=== PATIENT | female | born 1960 | race Asian ===

== ENCOUNTER → 2018-03-20 08:36 | Outpatient (CLI) | payer OTHER, SELFPAY ==
[2018-03-20 09:30] LABS: Hemoglobin A1C% w Est Avg Glu 6.2 % (4.0-6.0)
[2018-03-20 09:56] LABS: Alanine Aminotransferase 45 IU/L (9-52); Albumin 4.3 g/dL (3.5-5.0); Albumin Globulin Ratio 1.3 (1.0-2.8); Alkaline Phosphatase 84 U/L (38-126); Aspartate Aminotransferase 29 IU/L (14-36); BUN Creatinine Ratio 21.7 (6-22); Bilirubin Total 1.1 mg/dL (0.2-1.3); Blood Urea Nitrogen 13 mg/dL (7-17); Calcium 10.2 mg/dL (8.4-10.2); Carbon Dioxide 30 mmol/L (22-32); Chloride 99 mmol/L (98-107); Cholesterol 158 mg/dL (140-199); Estimated Glomerular Filt Rate > 60.0 mL/min (>60); Globulin 3.3 g/dL (1.7-4.1); Glucose 108 mg/dL (70-100); HDL Cholesterol 40 mg/dL (40-60); HEMOLYSIS < 15 (0-50); LDL Cholesterol Calculated 72 mg/dL (<100); Potassium 3.4 mmol/L (3.4-5.1); Sodium 142 mmol/L (137-145); Total Protein 7.6 g/dL (6.3-8.2); Triglycerides 232 mg/dL (35-150)
== END ==
PROVIDERS: PCP Internal Medicine; Visit Provider Internal Medicine
DX: E11.9 Type 2 diabetes mellitus without complications (principal); E78.00 Pure hypercholesterolemia, unspecified
CPT/HCPCS: 36415; 80053; 80061; 83036

== ENCOUNTER → 2019-07-15 10:53 | Outpatient (CLI) | payer OTHER, SELFPAY ==
--- NOTE | 2019-07-15 | DI.MG.S_ITS ---
BILATERAL DIGITAL SCREENING MAMMOGRAM 3D/2D WITH CAD: 07/15/2019 CLINICAL: Routine screening. Comparison is made to exams dated: 08/02/2017 mammogram, 08/01/2016 mammogram, 01/08/2015 mammogram, and 10/24/2013 mammogram - [facility]. The tissue of both breasts is heterogeneously dense. This may lower the sensitivity of mammography. Current study was also evaluated with a Computer Aided Detection (CAD) system. There is a biopsy clip in the right breast. No significant masses, calcifications, or other findings are seen in either breast. There has been no significant interval change. IMPRESSION: NEGATIVE There is no mammographic evidence of malignancy. A 1 year screening mammogram is recommended. This exam was interpreted at Station ID: [id number]. NOTE: For mammograms, a report in lay terms will be sent to the patient. Approximately 15% of breast malignancies will not be visualized mammographically. In the management of a palpable breast mass, a negative mammogram must not discourage biopsy of a clinically suspicious lesion. Electronically Signed By: Jaspreet argueta/binh:07/15/2019 16:25:31 letter sent: Normal Exam ACR BI-RADS Category 1: Negative 3341F
== END ==
PROVIDERS: Family Provider Internal Medicine; PCP Internal Medicine; Visit Provider Internal Medicine
DX: Z12.31 Encounter for screening mammogram for malignant neoplasm of breast (principal)
CPT/HCPCS: 77063; 77067

== ENCOUNTER → 2020-04-28 11:52 | Outpatient (CLI) | payer OTHER, SELFPAY ==
--- NOTE | 2020-04-28 11:55 | DI.RAD.S_ITS ---
PROCEDURE: XR KNEE LT 1TO2V INDICATIONS: LEFT KNEE PAIN TECHNIQUE: To views of the knee were acquired. COMPARISON: [facility], , KNEE 1-2 VIEWS RIGHT, 03/05/2014, 10:36. FINDINGS: Bones: No fractures or dislocations. No suspicious bony lesions. Severe degenerative arthritis involving the medial compartment and patellofemoral compartment with bulky osteophytes and joint space loss. Soft tissues: Minimal joint effusion. No suspicious soft tissue calcifications. IMPRESSION: Severe degenerative arthritis of the left knee. No evidence acute bony abnormality of the left knee. If clinical suspicion and/or symptoms persist, further assessment with repeat plain films, or advanced imaging (e.g., CT, MRI, or bone scan) may be helpful for further assessment. Dictated by: Jeb Williamson M.D. on 04/28/2020 at 12:44 Approved by: Jeb Williamson M.D. on 04/28/2020 at 12:45
--- NOTE | 2020-04-28 11:55 | DI.RAD.S_ITS ---
PROCEDURE: XR HIP W PEL IF DONE LT 2V INDICATIONS: LEFT HIP PAIN TECHNIQUE: AP pelvis with lateral view(s) of the left hip(s). COMPARISON: None. FINDINGS: Bones: No fractures or dislocations. Pelvic ring appears intact. No suspicious bony lesions. Mild to moderate degenerative arthritis of the left hip. Soft tissues: The visualized bowel gas pattern is normal. No suspicious soft tissue calcifications. IMPRESSION: [id number]-[id number] degenerative arthritis of the left hip. No evidence acute bony abnormality of the pelvis and left hip. If clinical suspicion and/or symptoms persist, further assessment with repeat plain films, or advanced imaging (e.g., CT, MRI, or bone scan) may be helpful for further assessment. Dictated by: Jeb Williamson M.D. on 04/28/2020 at 12:41 Approved by: Jeb Williamson M.D. on 04/28/2020 at 12:42
== END ==
PROVIDERS: Family Provider Internal Medicine; PCP Internal Medicine; Referring Provider Internal Medicine; Visit Provider Internal Medicine
DX: M25.552 Pain in left hip (principal); M16.12 Unilateral primary osteoarthritis, left hip; M25.562 Pain in left knee; M17.12 Unilateral primary osteoarthritis, left knee
CPT/HCPCS: 73502; 73560

== ENCOUNTER 2020-06-11 09:27 | Emergency (ER) | payer OTHER, SELFPAY ==
[2020-06-11 09:37] VITALS: BP 133/84; PULSE 81; RESP 16; TEMP 36.5; O2SAT 99; BMI 26.9
--- NOTE | 2020-06-11 09:48 | ED_ITS ---
HPI - Extremity Injury (Upper) General Chief Complaint: Extremity Problem,Nontraumatic Stated Complaint: injury to right arm Time Seen by Provider: 06/11/20 09:48 History of Present Illness HPI narrative: 60-year-old woman working at [employer] with no other specific medical issues was pulling boxes felt acute pain in her right forearm and then was unable to use her right arm due to severe pain. She presents to the emergency room for further evaluation. Related Data Previous Rx's Medication Instructions Recorded oxycodone-acetaminophen 1 tab PO Q6H PRN #14 tab 06/11/20 Allergies Allergy/AdvReac Type Severity Reaction Status Date / Time Aspirin Allergy Unknown ITCHY, Uncoded 01/23/18 12:00 REDNESS Review of Systems Review of Systems Narrative: Pertinent positive and negative findings as per HPI Remainder of review of systems is otherwise unremarkable for Constitutional: Fevers, chills, weakness ENT: No sore throat, neck pain, ear pain CV: Chest pain, palpitations, dyspnea on exertion Respiratory: Cough, wheeze, dyspnea GI: Nausea, vomiting, diarrhea, change in bowel habits, black or bloody stools : Dysuria, hematuria, flank pain MS: Muscle weakness, numbness, joint swelling or warmth Patient History Surgical History H/O: hysterectomy (Acute) History of knee replacement (Acute) Social History Smoking Status: Never smoker Exam Narrative Exam Narrative: General: Alert appropriate in no acute distress Respiratory: Able to speak in full sentences, no obvious respiratory distress Skin: No obvious rashes, warm and dry Neurologic: Grossly intact no obvious asymmetries or abnormalities Psych, appropriate insight and affect, cooperative Right arm is examined: She has significant tenderness and muscle spasm on the dorsal aspect of the right forearm. Tenderness in the distal portion and what seems to be spasm portion of the muscle body in the forearm. Pain is radiating up into her shoulder. She has full range of motion in her fingers. Tenderness with extension but not as much with flexion. With passive range of motion at the elbow and the shoulder she has no tenderness. There is no tenderness with palpation of biceps or triceps muscles. There is no bruising or contusion or abrasion at this time. She is completely neurovascularly intact. Initial Vital Signs Initial Vital Signs: Vital Signs Temperature 97.7 F 06/11/20 09:37 Pulse Rate 81 06/11/20 09:37 Respiratory Rate 16 06/11/20 09:37 Blood Pressure 133/84 06/11/20 09:37 Pulse Oximetry 99 06/11/20 09:37 Course Orders Ordered: Discontinued Medications Acetaminophen (Tylenol) 325 mg PO NOW ONE Stop: 06/11/20 10:29 Ibuprofen (Advil) 400 mg PO NOW ONE Stop: 06/11/20 10:29 Vital Signs Vital signs: Vital Signs - 8 hr 06/11/20 09:37 Temperature 97.7 F Pulse Rate 81 Respiratory Rate 16 Blood Pressure 133/84 Pulse Oximetry 99 [facility] - Extremity Injury (Upper) Medical Records Attestation: I reviewed the patient's medical records. [facility] Narrative Medical decision making narrative: Presumed spontaneous rupture of forearm extensor tendon given history and exam today. Home splint and pain control is provided. She is referred to orthopedics for definitive care. L and I forms are completed she will be able to do only light duty with no use of her right arm until further evaluated and cleared by orthopedics. Discharge Plan Departure Patient Disposition: Home Clinical Impression: Spontaneous rupture of flexor tendon of forearm Qualifiers: Laterality: right Qualified Code(s): M66.331 - Spontaneous rupture of flexor tendons, right forearm Instructions: DI for Arm Pain Activity Restrictions/Additional Instructions: Thank you for coming in today. I am concerned that you have ruptured 1 of the tendons in your forearm and that is what is causing the severe pain. Keeping the forearm as immobilized as possible will help with pain control. Using ice will be helpful. Using 400 mg of ibuprofen (2 [id number] pills) and 1 Tylenol every 6 hours can be very helpful in controlling pain. For severe pain using 400 mg of ibuprofen and 1 Percocet can be helpful. Percocet is a narcotic and will cause constipation. Please enjoy lots of the plums from your [place] to prevent constipation. You will need to follow-up with Dr. Zenia Huffman for definitive diagnosis and care. Prescriptions: New oxycodone-acetaminophen 5-325 mg tablet 1 tab PO Q6H PRN (Reason: pain) Qty: 14 RF: 0 Referrals: Zenia Huffman MD [Physician] - Bette Tomas MD [Primary Care Provider] -
[2020-06-11] MEDS: ACETAMINOPHEN 325 MG TABLET PO (10:35)
[2020-06-11] MEDS: IBUPROFEN 400 MG TABLET PO (10:36)
[2020-06-11 10:37] VITALS: PULSE 81; O2SAT 97
[2020-06-11 10:38] VITALS: BP 139/90; PULSE 81; RESP 16; O2SAT 98
== END 2020-06-11 11:04 | disposition home or self-care (01) ==
PROVIDERS: Emergency Provider Emergency Medicine; Family Provider Internal Medicine; PCP Internal Medicine
DX: M66.33 Spontaneous rupture of flexor tendons, forearm (principal); X58.XXXA Exposure to other specified factors, initial encounter; Y99.0 Civilian activity done for income or pay
CPT/HCPCS: 99282; 99283

== ENCOUNTER → 2020-07-16 16:21 | Outpatient (CLI) | payer OTHER, SELFPAY ==
--- NOTE | 2020-07-16 16:27 | DI.MG.S_ITS ---
BILATERAL DIGITAL SCREENING MAMMOGRAM 3D/2D WITH CAD: 07/16/2020 CLINICAL: Routine screening. Comparison is made to exams dated: 07/15/2019 mammogram, 08/02/2017 mammogram, and 08/01/2016 mammogram - [facility]. The tissue of both breasts is heterogeneously dense. This may lower the sensitivity of mammography. Current study was also evaluated with a Computer Aided Detection (CAD) system. There is a biopsy clip in the right breast. No significant masses, calcifications, or other findings are seen in either breast. There has been no significant interval change. IMPRESSION: NEGATIVE There is no mammographic evidence of malignancy. A 1 year screening mammogram is recommended. This exam was interpreted at Station ID: [id number]. NOTE: For mammograms, a report in lay terms will be sent to the patient. Approximately 15% of breast malignancies will not be visualized mammographically. In the management of a palpable breast mass, a negative mammogram must not discourage biopsy of a clinically suspicious lesion. Electronically Signed By: Priti ross/binh:07/16/2020 16:59:32 letter sent: Normal Exam ACR BI-RADS Category 1: Negative 3341F
== END ==
PROVIDERS: Family Provider Internal Medicine; PCP Internal Medicine; Referring Provider Internal Medicine; Visit Provider Internal Medicine
DX: Z12.31 Encounter for screening mammogram for malignant neoplasm of breast (principal)
CPT/HCPCS: 77063; 77067

== ENCOUNTER → 2020-08-27 10:21 | Outpatient (CLI) | payer OTHER, SELFPAY ==
[2020-08-27 11:44] LABS: Erythrocyte Sedimentation Rate 10 MM/HR (0-20)
[2020-08-27 11:53] LABS: Uric Acid 7.8 mg/dL (2.5-6.2)
[2020-08-27 11:57] LABS: Rheumatoid Factor < 8.6 IU/mL (<12.0)
[2020-08-29 14:26] LABS: ANA Screen, IFA Negative (.)
== END ==
PROVIDERS: Family Provider Internal Medicine; PCP Internal Medicine; Referring Provider Orthopaedic Surgery; Visit Provider Orthopaedic Surgery
DX: M19.90 Unspecified osteoarthritis, unspecified site (principal)
CPT/HCPCS: 36415; 84550; 85651; 86038; 86430

== ENCOUNTER → 2021-01-14 18:32 | Outpatient (ROUT) | payer OTHER, SELFPAY ==
[2021-01-14 19:00] LABS: Appearance Urine UA CLOUDY; Bilirubin Urine UA NEGATIVE (NEGATIVE); Color Urine UA YELLOW; Glucose Urine UA TRACE g/dL (Negative); Ketones Urine UA NEGATIVE (NEGATIVE); Leukocyte Esterase Urine UA TRACE (NEGATIVE); Nitrite Urine UA NEGATIVE (Negative); Occult Blood Urine UA 3+ (Negative); Protein Urine UA NEGATIVE (Negative); Specific Gravity Urine UA 1.015 (1.000-1.035); Urobilinogen Urine UA 0.2 E.U./dL (0.2)
[2021-01-14 19:08] LABS: Amorphous Sediment Urine 1+; Bacteria Urine Occasional (0-1); Culture Indicated Urine Specimen Cultured; RBC Urine >100/HPF (0-5/HPF); Squamous Epithelial Cell Urine 0-1 /HPF (0-5/HPF); WBC Urine 1-5/HPF (0-5/HPF)
== END ==
PROVIDERS: Family Provider Internal Medicine; PCP Internal Medicine; Visit Provider Physician Assistant
DX: R31.9 Hematuria, unspecified (principal)
CPT/HCPCS: 81001; 87086

== ENCOUNTER 2021-01-15 02:24 | Emergency (ER) | payer OTHER, SELFPAY ==
[2021-01-15 02:40] VITALS: BP 179/83; PULSE 92; RESP 22; TEMP 36.3; O2SAT 99; BMI 26.2
--- NOTE | 2021-01-15 02:41 | DI.CT.S_ITS ---
PROCEDURE: CT KIDNEY URETER BLADDER (KUB) INDICATIONS: flank pain TECHNIQUE: Noncontrast 5 mm thick sections acquired from the diaphragms to the symphysis. 5 mm thick coronal and sagittal reformats were then performed. For radiation dose reduction, the following was used: automated exposure control, adjustment of mA and/or kV according to patient size. COMPARISON: None. FINDINGS: Image quality: Excellent. Lung bases: Lung bases are clear. Heart size is normal. Urinary system: Both kidneys are normal in size. Punctate nonobstructing right kidney stones. There is a 3 millimeter stone in the distal left ureter with associated mild left hydronephrosis and perinephric stranding there also appears to be a 2 millimeter stone at the left ureterovesicular junction. Bladder wall thickness is normal; no calcified bladder stones. Other solid organs: Liver is normal in size. Gallbladder is partially stat. Pancreas is normal in contours. Spleen is normal in size. No adrenal nodules. Peritoneum and bowel: Unenhanced bowel loops demonstrate normal wall thickness and caliber. No free fluid or air. Nodes and vessels: No retroperitoneal or mesenteric adenopathy by size criteria. Aorta and inferior vena cava are normal in caliber. Vascular calcification of the abdominal aorta and its branches. Abdominal wall: No ventral hernias. Pelvis: No free pelvic fluid. Uterus surgically absent. No inguinal hernias or adenopathy. Bones: No suspicious bony lesions. No vertebral body compression fractures. Multilevel spondylosis most apparent at the L2-3 level where there is trace retrolisthesis. IMPRESSION: There is a 3 millimeter stone in the distal left ureter with associated mild left hydronephrosis and perinephric stranding there also appears to be a 2 millimeter stone at the left ureterovesicular junction. No significant discrepancy the preliminary report. Dictated by: Jason Molina M.D. on 01/15/2021 at 8:24 Approved by: Jason Molina M.D. on 01/15/2021 at 8:30
--- NOTE | 2021-01-15 02:43 | ED_ITS ---
HPI - Back Pain/Injury General Chief Complaint: Back Pain/Injury Stated Complaint: Back pain vomiting Time Seen by Provider: 01/15/21 02:41 Source: patient and family (Son) Mode of arrival: Ambulatory Limitations: no limitations History of Present Illness HPI Narrative: This is a 60-year-old female comes in with complaint of hematuria yesterday. Patient states she had a sudden onset of left-sided flank pain radia ting to her left to her abdomen this evening. Patient has had nausea and vomiting. She felt chilled earlier this evening. She denies any diaphoresis. She has not any issues with bowel movements. She has not had any frequency, dysuria sense of urgency. She states she is on metformin, lisinopril and vitamin-D. She has had a total abdominal hysterectomy. She does not know of any prior kidney stones but has similar pain once before many years ago on the right side. No tobacco, alcohol or illicit. She was accompanied here by her son today. Related Data Previous Rx's Medication Instructions Recorded oxycodone-acetaminophen 1 tab PO Q6H PRN #14 tab 06/11/20 oxycodone-acetaminophen [Percocet] 1 tab PO Q6H PRN #14 tab 01/15/21 tamsulosin [Flomax] 0.4 mg PO DAILY #7 cap 01/15/21 Allergies Allergy/AdvReac Type Severity Reaction Status Date / Time aspirin Allergy Unknown ITCHY, Verified 06/11/20 10:45 REDNESS Review of Systems Review of Systems ROS Unobtainable: All systems reviewed & are unremarkable except as noted in HPI and below Patient History Surgical History H/O: hysterectomy History of knee replacement Social History Smoking Status: Never smoker Smoking Status: Never smoker alcohol intake frequency: holidays/special occasions only Substance Use Type: does not use Exam Narrative Exam Narrative: GENERAL: Alert and oriented x three, well-nourished female in moderate distress. Patient is having quite a bit difficulty finding position of comfort. HEENT: Head normocephalic, atraumatic, EOMI, pupils reactive, face symmetric, moist mucous membranes NECK: Supple, full range of motion CARDIOVASCULAR: Regular rate and rhythm without murmurs, rubs or gallops. RESPIRATORY: Breath sounds equal bilaterally, no wheezes rales or rhonchi. ABDOMEN: Soft, nontender to palpation. Nondistended. Normoactive bowel sounds all 4 quadrants. No guarding or rebound, rigidity, no mass, no bruit or abdominal mass. : No CVA tenderness EXTREMITIES: Normal range of motion, no clubbing or edema. Neurovascularly intact NEUROLOGICAL: Cranial nerves II through XII grossly intact. Moving all ext remities SKIN: Warm, dry, no petechiae, no rashes or lesions. Initial Vital Signs Initial Vital Signs: Vital Signs Temperature 97.4 F L 01/15/21 02:40 Pulse Rate 92 H 01/15/21 02:40 Respiratory Rate 22 01/15/21 02:40 Blood Pressure 179/83 H 01/15/21 02:40 Pulse Oximetry 99 01/15/21 02:40 Course Orders Ordered: ED Orders 01/15/21 02:32 Urine Microscopic Stat 01/15/21 02:41 CT kidney ureter bladder (KUB) Stat 01/15/21 02:55 Complete Blood Count AUTO DIFF Stat Comprehensive Metabolic Panel Stat Lipase Stat Discontinued Medications Sodium Chloride (Normal Saline 0.9%) 1,000 mls @ 1,000 mls/hr IV BOLUS ONE Stop: 01/15/21 03:40 Last Infusion: 01/15/21 04:11 Dose: 0 mls/hr Documented by: Admin: 01/15/21 02:48 Dose: 1,000 mls/hr Documented by: VANESSA Lidocaine HCl 5 ml/ Sodium (Chloride) 55 mls @ 330 mls/hr IV NOW ONE Stop: 01/15/21 04:14 Last Infusion: 01/15/21 04:45 Dose: 0 mls/hr Documented by: Admin: 01/15/21 04:29 Dose: 330 mls/hr Documented by: VANESSA Ketorolac Tromethamine (Ketorolac 60 Mg/2 Ml Vial) 15 mg IV NOW ONE Stop: 01/15/21 02:43 Last Admin: 01/15/21 02:47 Dose: 15 mg Documented by: VANESSA Ondansetron HCl (Ondansetron 4 Mg/2 Ml Inj) 4 mg IV NOW ONE Stop: 01/15/21 02:43 Oxycodone/Acetaminophen (Oxycodone/Apap 5/325 Prepack) 1 bottle MISC SEEINSTR ONE Stop: 01/15/21 05:51 Tamsulosin HCl (Tamsulosin 0.4 Mg Capsule) 0.4 mg PO NOW ONE Stop: 01/15/21 04:18 Last Admin: 01/15/21 04:27 Dose: 0.4 mg Documented by: VANESSA Reevaluation(s) Reevaluation #1: Patient pain had improved with Toradol but then began to recur, it is not as intense and is intermittent in waves and has moved from left upper flank to lower left abdomen. Reviewed labs and imaging. Lidocaine IV given. Time: 04:13 Reevaluation #2: patient present but significantly better and patient would like to return home. Reviewed discharge plans, labs, imaging and return precautions. Patient has mobic 15mg at home and we can continue as prescribed w/ percocet for breakthrough pain. Time: 05:50 Vital Signs Vital signs: Vital Signs - 8 hr 01/15/21 02:40 Temperature 97.4 F L Pulse Rate 92 H Respiratory Rate 22 Blood Pressure 179/83 H Pulse Oximetry 99 MDM - Back Pain/Injury Lab Data Attestation: I reviewed the patient's lab results. Result diagrams: 01/15/21 02:55 01/15/21 02:55 Labs: Lab Results 01/15/21 01/15/21 01/15/21 Range/Units 02:32 02:55 02:55 WBC 7.4 (4.5-11.0) X10^3/uL RBC 4.77 (4.0-5.2) X10^6/uL Hgb 13.2 (12.0-16.0) g/dL Hct 40.4 (36-46) % MCV 84.6 (80-100) fL MCH 27.7 (26-34) PG MCHC 32.8 (30-36) % RDW 13.6 (11.6-14.8) % Plt Count 237 (150-400) X10^3/uL Neut % (Auto) 56.3 (50-75) % Lymph % (Auto) 37.2 (25-40) % [place] % (Auto) 5.0 (3-14) % Eos % (Auto) 0.8 L (2-4) % Baso % (Auto) 0.7 (0-2) % Neut # (Auto) 4200 (7975-4452) /uL Lymph # (Auto) 2800 (6928-7507) /uL [place] # (Auto) 400 (0-900) /uL Eos # (Auto) 100 (0-450) /uL Baso # (Auto) 100 (0-100) /uL Sodium 142 (137-145) mmol/L Potassium 3.9 (3.4-5.1) mmol/L Chloride 108 H (98-107) mmol/L Carbon Dioxide 27 (22-32) mmol/L BUN 21 H (7-17) mg/dL Creatinine 0.91 (0.52-1.04) mg/dL Estimated GFR > 60.0 (>60) mL/min BUN/Creatinine Ratio 23.1 H (6-22) Glucose 180 H (80-110) mg/dL Calcium 9.9 (8.4-10.2) mg/dL Total Bilirubin 0.2 (0.2-1.3) mg/dL AST 30 (14-36) IU/L ALT 26 (<35) IU/L Alkaline Phosphatase 68 (38-126) U/L Total Protein 7.4 (6.3-8.2) g/dL Albumin 4.2 (3.5-5.0) g/dL Globulin 3.2 (1.7-4.1) g/dL Albumin/Globulin Ratio 1.3 (1.0-2.8) Lipase (23-300) U/L Urine RBC 1-5/hpf D (0-5/HPF) Urine WBC 0-1/hpf (0-5/HPF) Ur Squamous Epith Cells 1-5 /hpf (0-5/HPF) Urine Bacteria Occasional (0-1) (None) Hyaline Casts 0-1/lpf (None) Urine Mucus 1+ H (Negative) Ur Culture Indicated? Specimen cultured 01/15/21 Range/Units 02:55 WBC (4.5-11.0) X10^3/uL RBC (4.0-5.2) X10^6/uL Hgb (12.0-16.0) g/dL Hct (36-46) % MCV (80-100) fL MCH (26-34) PG MCHC (30-36) % RDW (11.6-14.8) % Plt Count (150-400) X10^3/uL Neut % (Auto) (50-75) % Lymph % (Auto) (25-40) % [place] % (Auto) (3-14) % Eos % (Auto) (2-4) % Baso % (Auto) (0-2) % Neut # (Auto) (8351-9506) /uL Lymph # (Auto) (2538-6532) /uL [place] # (Auto) (0-900) /uL Eos # (Auto) (0-450) /uL Baso # (Auto) (0-100) /uL Sodium (137-145) mmol/L Potassium (3.4-5.1) mmol/L Chloride (98-107) mmol/L Carbon Dioxide (22-32) mmol/L BUN (7-17) mg/dL Creatinine (0.52-1.04) mg/dL Estimated GFR (>60) mL/min BUN/Creatinine Ratio (6-22) Glucose (80-110) mg/dL Calcium (8.4-10.2) mg/dL Total Bilirubin (0.2-1.3) mg/dL AST (14-36) IU/L ALT (<35) IU/L Alkaline Phosphatase (38-126) U/L Total Protein (6.3-8.2) g/dL Albumin (3.5-5.0) g/dL Globulin (1.7-4.1) g/dL Albumin/Globulin Ratio (1.0-2.8) Lipase 97 (23-300) U/L Urine RBC (0-5/HPF) Urine WBC (0-5/HPF) Ur Squamous Epith Cells (0-5/HPF) Urine Bacteria (None) Hyaline Casts (None) Urine Mucus (Negative) Ur Culture Indicated? Urine Dip Bedside Urine Glucose Negative Bedside Urine Bilirubin - Negative Bedside Urine Ketone - Negative Urine Specific [place] 1.020 Bedside Urine Occult Blood ++ Bedside Urine pH 7.0 Bedside Urine Protein - Negative Bedside Urine Urobilinogen - Negative Bedside Urine Nitrite - Negative Bedside Urine Leukocytes + [address] scan - abdomen/pelvis: Radiologist's Impression: Mild fatty liver infiltrate. Mild left hydro, hydroureter, perinephric stranding compatible with obstructive uropathy sec ondary to 2.5 mm ureterovesical junction calculus. Phleboliths in the lower pelvis. Punctate bilateral intrarenal calculi. Right obstructive uropathy. Atherosclerosis. Hysterectomy. Mild fecal retention. Unremarkable appendix. No significant bowel distention. No ascites or pneumoperitoneum. Osteoporosis. Spondylosis. Multilevel slight grade 1 listhesis lumbar spine. MDM Narrative Medical decision making narrative: Patient comes in with physical exam and story consistent with kidney stone. Patient is quite uncomfortable she is not have any known prior history CT was ordered she has a 2.5 mm stone ureterovesical junction. Patient labs any leukocytosis. Renal function is 0.91, past is 0.6. No other major lab abnormalities other than glucose is elevated at 180 and chloride is minimally elevated. Urine shows 1-5 RBCs although she had greater than 100 on her urinalysis yesterday. Specimen was cultured and is pending. Patient pain is significantly improved with Toradol but then returned. Discharge Plan Departure Patient Disposition: Home Clinical Impression: Kidney stone on left side Instructions: DI for Kidney Stones Activity Restrictions/Additional Instructions: Follow up with Urology this week for recheck. Call for an appointment. Your urine culture is pending, if this is positive you will be called to start antibiotics. Take Flomax once daily until gone. Take pain medication as prescribed, this medication can make you sleepy do not drive, perform hazardous activities or make any major decisions while taking it. This medication can make you constipated, make sure your taking a stool softener 1 2 tablets daily until stools are soft and regular. Prescriptions were sent to [facility]. Please return for fevers, rapidly worsening or severe pain, uncontrollable pain, persistent vomiting, inability urinate, black or bloody stools, lightheadedness or passing out, new chest pain or shortness of breath or other new or concerning symptoms. Prescriptions: New tamsulosin [Flomax] 0.4 mg capsule 0.4 mg PO DAILY Qty: 7 RF: 0 oxycodone-acetaminophen [Percocet] 5-325 mg tablet 1 tab PO Q6H PRN (Reason: pain) Qty: 14 RF: 0 No Action oxycodone-acetaminophen 5-325 mg tablet 1 tab PO Q6H PRN (Reason: pain) Qty: 14 RF: 0 Referrals: Rebekah Patrick MD [Physician] - Bette Tomas MD [Primary Care Provider] -
[2021-01-15] MEDS: KETOROLAC 60 MG/2 ML VIAL 15 MG IV (02:47)
[2021-01-15] MEDS: SODIUM CHLORIDE 0.9% 1,000 ML 1000 ML IV (02:48)
[2021-01-15 02:57] LABS: RBC Urine 1-5/HPF (0-5/HPF); Squamous Epithelial Cell Urine 1-5 /HPF (0-5/HPF)
[2021-01-15 02:58] LABS: Bacteria Urine Occasional (0-1); Hyaline Casts Urine 0-1/LPF; Mucus Urine 1+ (Negative); WBC Urine 0-1/HPF (0-5/HPF)
[2021-01-15 03:03] LABS: Culture Indicated Urine Specimen Cultured
[2021-01-15 03:04] LABS: Add Manual Diff / Slide Review NO; Basophils Absolute Auto 100 /uL (0-100); Basophils Percent Auto 0.7 % (0-2); Eosinophils Absolute Auto 100 /uL (0-450); Eosinophils Percent Auto 0.8 % (2-4); Hematocrit 40.4 % (36-46); Hemoglobin 13.2 g/dL (12.0-16.0); Lymphocytes Absolute Auto 2800 /uL (1100-4500); Lymphocytes Percent Auto 37.2 % (25-40); Mean Corpuscular HGB Conc 32.8 % (30-36); Mean Corpuscular Hemoglobin 27.7 PG (26-34); Mean Corpuscular Volume 84.6 fL (80-100); Monocytes Absolute Auto 400 /uL (0-900); Neutrophils Absolute Auto 4200 /uL (1500-7000); Neutrophils Percent Auto 56.3 % (50-75); Platelet Count 237 X10^3/uL (150-400); Red Blood Cell Count 4.77 X10^6/uL (4.0-5.2); Red Cell Distribution Width 13.6 % (11.6-14.8); White Blood Cell Count 7.4 X10^3/uL (4.5-11.0)
[2021-01-15 03:14] LABS: Alanine Aminotransferase 26 IU/L (<35); Albumin 4.2 g/dL (3.5-5.0); Albumin Globulin Ratio 1.3 (1.0-2.8); Alkaline Phosphatase 68 U/L (38-126); Aspartate Aminotransferase 30 IU/L (14-36); BUN Creatinine Ratio 23.1 (6-22); Bilirubin Total 0.2 mg/dL (0.2-1.3); Blood Urea Nitrogen 21 mg/dL (7-17); Calcium 9.9 mg/dL (8.4-10.2); Carbon Dioxide 27 mmol/L (22-32); Chloride 108 mmol/L (98-107); Estimated Glomerular Filt Rate > 60.0 mL/min (>60); Globulin 3.2 g/dL (1.7-4.1); Glucose 180 mg/dL (80-110); HEMOLYSIS 16 (0-50); Lipase 97 U/L (23-300); Potassium 3.9 mmol/L (3.4-5.1); Sodium 142 mmol/L (137-145); Total Protein 7.4 g/dL (6.3-8.2)
[2021-01-15] MEDS: TAMSULOSIN 0.4 MG CAPSULE PO (04:27)
[2021-01-15] MEDS: SODIUM CHLORIDE 0.9% IV (04:29)
[2021-01-15] MEDS: LIDOCAINE 2% IV (04:29)
[2021-01-15 04:34] VITALS: PULSE 83; O2SAT 100
[2021-01-15 05:00] VITALS: PULSE 82; RESP 23; O2SAT 98
--- NOTE | 2021-01-15 05:51 | PC.NURSE ---
PT with sudden onset left flank pain. woke patient up. states had 1 episode of emesis.
[2021-01-15] MEDS: OXYCODONE/APAP 5/325 PREPACK 1 BOTTLE MISC (06:06)
[2021-01-15 06:15] VITALS: PULSE 88; O2SAT 96
[2021-01-15 06:16] VITALS: BP 127/80; PULSE 84; O2SAT 96
== END 2021-01-15 06:21 | disposition home or self-care (01) ==
PROVIDERS: Emergency Provider Emergency Medicine; Family Provider Internal Medicine; PCP Internal Medicine
DX: N20.0 Calculus of kidney (principal)
CPT/HCPCS: 36415; 74176; 80053; 81003; 81015; 83690; 85025; 96361; 96365; 96375; 99284; J1885; J2405

== ENCOUNTER → 2021-07-23 12:28 | Outpatient (CLI) | payer OTHER, SELFPAY | PROVIDERS: Family Provider Internal Medicine; PCP Internal Medicine; Referring Provider Internal Medicine; Visit Provider Internal Medicine | DX: Z12.31 Encounter for screening mammogram for malignant neoplasm of breast (principal); Z53.8 Procedure and treatment not carried out for other reasons ==

== ENCOUNTER → 2021-08-20 10:32 | Outpatient (CLI) | payer OTHER, SELFPAY ==
--- NOTE | 2021-08-20 10:32 | DI.MG.S_ITS ---
BILATERAL DIGITAL SCREENING MAMMOGRAM 3D/2D WITH CAD: 08/20/2021 CLINICAL: Routine screening. Comparison is made to exams dated: 07/16/2020 mammogram, 07/15/2019 mammogram, and 08/02/2017 mammogram - [facility]. There are scattered fibroglandular elements in both breasts. Current study was also evaluated with a Computer Aided Detection (CAD) system. There is a biopsy clip in the right breast. No significant masses, calcifications, or other findings are seen in either breast. There has been no significant interval change. IMPRESSION: NEGATIVE There is no mammographic evidence of malignancy. A 1 year screening mammogram is recommended. This exam was interpreted at Station ID: [id number]. NOTE: For mammograms, a report in lay terms will be sent to the patient. Approximately 15% of breast malignancies will not be visualized mammographically. In the management of a palpable breast mass, a negative mammogram must not discourage biopsy of a clinically suspicious lesion. Electronically Signed By: Masood jha/binh:08/22/2021 09:07:13 letter sent: Normal Exam ACR BI-RADS Category 1: Negative 3341F
== END ==
PROVIDERS: Family Provider Internal Medicine; PCP Internal Medicine; Referring Provider Internal Medicine; Visit Provider Internal Medicine
DX: Z12.31 Encounter for screening mammogram for malignant neoplasm of breast (principal)
CPT/HCPCS: 77063; 77067

== ENCOUNTER → 2022-02-10 14:28 | Outpatient (CLI) | payer OTHER, SELFPAY ==
[2022-02-10 15:26] LABS: COVID19 -Nasal RAPID Negative (Negative)
== END ==
PROVIDERS: Family Provider Internal Medicine; PCP Internal Medicine; Visit Provider Family Medicine Sleep Medicine
DX: Z20.822 Contact with and (suspected) exposure to COVID-19 (principal)
CPT/HCPCS: 87635; C9803

== ENCOUNTER 2022-02-13 07:32 | Day surgery (SDC) | payer OTHER, SELFPAY ==
[2022-02-13] VITALS (7 sets, daily range): BP systolic 113–149; BP diastolic 73–95; PULSE 70–87; RESP 14–20; TEMP 36.2–36.6; O2SAT 97–100; BMI 26.5
[2022-02-13] MEDS: SODIUM CHLORIDE 0.9% 1,000 ML 84 ML IV (08:31)
--- NOTE | 2022-02-13 08:43 | PM.HP.1 ---
History of Present Illness History of Present Illness Date Patient Seen: 02/13/22 Time Patient Seen: 08:43 Chief complaint: SDC Narrative: Here for colon cancer screening Patient History Surgical History H/O: hysterectomy History of knee replacement Family & Social History Social History: household members spouse Tobacco & Substance use: Smoking Status Never smoker alcohol intake current alcohol intake frequency holiday/special occasion Substance Use Type does not use Meds Home Medications and Allergies Home Medications Medication Instructions Recorded Confirmed Type metformin 500 mg tablet 500 mg BID 02/10/22 02/13/22 History ibuprofen 200 mg BID 02/13/22 02/13/22 History lisinopril 10 mg tablet 10 mg DAILY 02/13/22 02/13/22 History meloxicam 15 mg tablet 15 mg DAILY 02/13/22 02/13/22 History rosuvastatin 10 mg tablet 10 mg DAILY 02/13/22 02/13/22 History Allergies Allergy/AdvReac Type Severity Reaction Status Date / Time aspirin Allergy Unknown ITCHY, Verified 06/11/20 10:45 REDNESS Review of Systems Review of Systems ROS: Yes All systems reviewed with the patient and are negative except as otherwise documented Exam Vital Signs (past 8 hours): - 02/13/22 08:31 Temperature 97.9 F Pulse Rate 72 Respiratory Rate 16 Blood Pressure 149/93 H Pulse Oximetry 97 Oxygen Delivery Method Room Air Const General: cooperative and comfortable Orientation: alert HENMT Head: normocephalic Ears: external ears normal Nose: external nose normal Face and sinus: normal facial exam Mouth: oral mucosae normal Eyes General: appearance normal, both eyes and all related structures Neck Neck: normal visual inspection Chest Chest: normal inspection of the chest Resp Effort & Inspection: normal respiratory effort Cardio Rate: regular rate GI Inspection: normal to inspection Skin General: no rashes or lesions noted and No jaundice Neuro General: patient alert and moves all extremities Cognition: normal cognition Speech: speech normal Extrem General: no pedal edema Psych Appearance: grossly normal Assessment & Plan Assessment & Plan narrative: 61-year-old female indicated for colon cancer screening. Colonoscopy is pursued today. Time Spent With Patient Critical Care time: I spent a total of [] minutes of critical care time on this patient's care today; this time is exclusive of procedural time.
--- NOTE | 2022-02-13 08:44 | PM.PREOP ---
Pre-operative Note COVID-19 COVID-19 status: Negative Result date/Date tested (Pos, Neg/Pending): 02/10/22 Criteria for continued procedure: Possibility delay results in more complex future surgery or treatment Interval Note History & Physical reviewed/Exam performed by Physician: Yes Changes to H&P: No ASA Class (for procedural sedation): II
--- NOTE | 2022-02-13 09:39 | PM.OP.COLON ---
Operative Date/Time/Diagnoses Date of procedure: 02/13/22 Time of procedure: 09:39 Pre-op diagnosis: Colon cancer screening Post-op diagnosis: same Procedure & Clinicians Study performed: Colonoscopy Same procedure as scheduled: Yes Indications: Colon cancer screening Surgeon: Janak Hill Procedure Notes SCOAP/Timeout: Done Procedure in detail: After the risks and benefits were explained, written and verbal informed consent was obtained. The patient was brought into the procedure room and placed into the left lateral decubitus position. Please see nurse social sciences instructor notes for sedation details. Digital rectal examination was accomplished. The scope was introduced into the patient and advanced under direct visualization to the cecum as identified by the appendiceal orifice and ileocecal valve. The scope was slowly withdrawn to carefully examine the mucosa for any defects or lesions. Comprehensive imaging was accomplished throughout the rectum including the dentate line. The colon was decompressed, the scope was then removed from the patient who tolerated the procedure well. Bowel prep adequate Adult colonoscope Scope withdrawal time: 7 minutes Sedation minutes: 14 Specimen(s): none sent Complications: none Impression: There were some scattered diverticula in the right colon. No significant polyps mass lesions or inflammatory features identified throughout. There was a diminutive classic hyperplastic appearing polyp in the rectum that was left alone. No inflammatory features identified throughout. The patient had grade 1 to grade 2 hemorrhoids. Endoscopic diagnosis 1. Grade 1 to grade 2 hemorrhoids 2. Mild diverticulosis Post-procedure Plan for aftercare: 1. Continue along and primary care as before. 2. Repeat colonoscopy for colon cancer screening in 10 years time; sooner should symptoms warrant an earlier exam. Disposition: PACU
== END 2022-02-13 10:12 | disposition home or self-care (01) ==
PROVIDERS: Family Provider Internal Medicine; PCP Internal Medicine; Referring Provider Internal Medicine Gastroenterology; Visit Provider Internal Medicine Gastroenterology
PROC: 0DJD8ZZ Inspection of Lower Intestinal Tract, Via Natural or Artificial Opening Endoscopic (ICD-10-PCS; CPT 45378; principal; 2022-02-13 09:00)
DX: Z12.11 Encounter for screening for malignant neoplasm of colon (principal); K64.1 Second degree hemorrhoids; K62.1 Rectal polyp; K57.30 Diverticulosis of large intestine without perforation or abscess without bleeding
CPT/HCPCS: 45378; 82962; J2704

== ENCOUNTER → 2022-04-26 08:50 | Outpatient (CLI) | payer OTHER, SELFPAY ==
[2022-04-26 11:04] LABS: Appearance Urine UA CLEAR; Bilirubin Urine UA NEGATIVE (NEGATIVE); Color Urine UA YELLOW; Glucose Urine UA NEGATIVE (Negative); Ketones Urine UA NEGATIVE (NEGATIVE); Leukocyte Esterase Urine UA NEGATIVE (NEGATIVE); Nitrite Urine UA NEGATIVE (Negative); Occult Blood Urine UA NEGATIVE (Negative); Protein Urine UA NEGATIVE (Negative); Urobilinogen Urine UA 0.2 E.U./dL (0.2)
[2022-04-26 11:07] LABS: pH Urine UA 7.5 (4.5-8.0)
[2022-04-26 11:10] LABS: Add Manual Diff / Slide Review NO; Basophils Absolute Auto 0 /uL (0-100); Basophils Percent Auto 0.3 % (0-2); Eosinophils Absolute Auto 100 /uL (0-450); Eosinophils Percent Auto 1.9 % (2-4); Hematocrit 38.1 % (36-46); Hemoglobin 13.2 g/dL (12.0-16.0); Lymphocytes Absolute Auto 1900 /uL (1100-4500); Lymphocytes Percent Auto 46.2 % (25-40); Mean Corpuscular HGB Conc 34.5 % (30-36); Mean Corpuscular Hemoglobin 28.8 PG (26-34); Mean Corpuscular Volume 83.5 fL (80-100); Monocytes Absolute Auto 300 /uL (0-900); Monocytes Percent Auto 6.5 % (3-14); Neutrophils Absolute Auto 1900 /uL (1500-7000); Neutrophils Percent Auto 45.1 % (50-75); Platelet Count 217 X10^3/uL (150-400); Red Blood Cell Count 4.57 X10^6/uL (4.0-5.2); White Blood Cell Count 4.2 X10^3/uL (4.5-11.0)
[2022-04-26 11:18] LABS: RBC Urine None Seen (0-5/HPF); WBC Urine None Seen (0-5/HPF)
[2022-04-26 11:19] LABS: Bacteria Urine None Seen; Culture Indicated Urine Cult Not Indicated; Urine Comments Microscopic Normal
[2022-04-26 11:25] LABS: Alanine Aminotransferase 18 IU/L (<35); Albumin 4.6 g/dL (3.5-5.0); Albumin Globulin Ratio 1.4 (1.0-2.8); Alkaline Phosphatase 80 U/L (38-126); Aspartate Aminotransferase 31 IU/L (14-36); Bilirubin Total 0.8 mg/dL (0.2-1.3); Blood Urea Nitrogen 23 mg/dL (7-17); Carbon Dioxide 29 mmol/L (22-32); Chloride 104 mmol/L (98-107); Cholesterol 150 mg/dL (140-199); Estimated Glomerular Filt Rate > 60 mL/min (>60); Globulin 3.2 g/dL (1.7-4.1); Glucose 100 mg/dL (80-110); HDL Cholesterol 40 mg/dL (40-60); HEMOLYSIS < 15 (0-50); LDL Cholesterol Calculated 72 mg/dL (<100); Potassium 4.7 mmol/L (3.4-5.1); Sodium 142 mmol/L (137-145); Total Protein 7.8 g/dL (6.3-8.2); Triglycerides 188 mg/dL (35-150)
[2022-04-26 11:39] LABS: Vitamin D 25 Hydroxy (D3) 61.8 ng/mL (30.0-100.0)
[2022-04-27 03:20] LABS: Hemoglobin A1C% w Est Avg Glu 6.1 % (4.0-6.0)
== END ==
PROVIDERS: Family Provider Internal Medicine; PCP Internal Medicine; Referring Provider Orthopaedic Surgery; Visit Provider Orthopaedic Surgery
DX: Z01.818 Encounter for other preprocedural examination (principal); E78.2 Mixed hyperlipidemia; E55.9 Vitamin D deficiency, unspecified; E11.9 Type 2 diabetes mellitus without complications; Z01.812 Encounter for preprocedural laboratory examination; N39.0 Urinary tract infection, site not specified; R73.9 Hyperglycemia, unspecified
CPT/HCPCS: 36415; 80053; 80061; 81001; 82306; 83036; 85025; 93005; 93010

== ENCOUNTER → 2022-08-29 | Outpatient (CLI) | payer OTHER, SELFPAY ==
--- NOTE | 2022-08-29 | DI.MG.S_ITS ---
BILATERAL DIGITAL SCREENING MAMMOGRAM 3D/2D WITH CAD: 08/29/2022 CLINICAL: Routine screening. Comparison is made to exams dated: 08/20/2021 mammogram, 07/16/2020 mammogram, and 07/15/2019 mammogram - [facility]. There are scattered areas of fibroglandular density in both breasts (category b / 25%-50% glandular tissue). Current study was also evaluated with a Computer Aided Detection (CAD) system. There is a developing irregular high density asymmetry with an indistinct margin in the left breast at 1 o'clock posterior depth. No other significant masses, calcifications, or other findings are seen in either breast. IMPRESSION: INCOMPLETE: NEEDS ADDITIONAL IMAGING EVALUATION The developing irregular high density asymmetry in the left breast is indeterminate. Additional views with possible ultrasound are recommended. Based on the Tyrer Cuzick model (a risk assessment model) the patient's lifetime risk is 4.9% and her 10 year risk is 2.1%. According to the ACR, ACS, and NCCN guidelines, an annual breast MRI exam along with mammogram is recommended if the patient's lifetime risk is 20% or greater. This exam was interpreted at Station ID: [id number]. NOTE: For mammograms, a report in lay terms will be sent to the patient. Approximately 15% of breast malignancies will not be visualized mammographically. In the management of a palpable breast mass, a negative mammogram must not discourage biopsy of a clinically suspicious lesion. Electronically Signed By: Lissette murdock/binh:08/29/2022 12:57:48 letter sent: Additional Imaging Needed ACR BI-RADS Category 0: Incomplete [id number]
== END ==
PROVIDERS: Family Provider Internal Medicine; PCP Internal Medicine; Referring Provider Internal Medicine; Visit Provider Internal Medicine
DX: Z12.31 Encounter for screening mammogram for malignant neoplasm of breast (principal)
CPT/HCPCS: 77063; 77067

== ENCOUNTER → 2022-10-11 08:37 | Outpatient (CLI) | payer OTHER, SELFPAY ==
--- NOTE | 2022-10-11 | DI.US.S_ITS ---
LIMITED ULTRASOUND OF LEFT BREAST: 10/11/2022 CLINICAL: Patient returns today to evaluate an asymmetry in the left breast. Comparison is made to exams dated: 10/11/2022 mammogram, 08/29/2022 mammogram, 08/20/2021 mammogram, 07/16/2020 mammogram, 07/15/2019 mammogram, and 08/22/2017 [facility] [place]. Color flow and real-time ultrasound of the left breast 1 o'clock region were performed. Webster scale images of the real-time examination were reviewed. There is an irregular solid mass with a spiculated margin in the left breast at 1 o'clock posterior depth. This irregular solid mass is hypoechoic with posterior acoustic shadowing. Color flow imaging demonstrates that there is vascularity present. IMPRESSION: SUSPICIOUS OF MALIGNANCY The irregular solid mass in the left breast is suspicious of malignancy. Ultrasound guided biopsy recommended. No suspicious left axillary lymph node identified. This exam was interpreted at Station ID: [id number]. Electronically Signed By: Alex Vargas M.D. jr/:10/12/2022 14:44:21 letter sent: Biopsy Required Ultrasound BI-RADS: 4 Suspicious for malignancy
--- NOTE | 2022-10-11 | DI.MG.S_ITS ---
UNILATERAL LEFT DIGITAL DIAGNOSTIC MAMMOGRAM 3D/2D WITH ADDITIONAL VIEWS: 10/11/2022 CLINICAL: Additional evaluation requested from prior study. Comparison is made to exams dated: 08/29/2022 mammogram, 08/20/2021 mammogram, and 07/16/2020 mammogram - [facility]. There are scattered areas of fibroglandular density in the left breast (category b / 25%-50% glandular tissue). There is a developing irregular high density asymmetry with an indistinct margin in the left breast at 1 o'clock posterior depth. No other significant masses or calcifications are seen in the breast. IMPRESSION: INCOMPLETE: NEEDS ADDITIONAL IMAGING EVALUATION The developing irregular high density asymmetry in the left breast is indeterminate. An ultrasound is recommended. Based on the Tyrer Cuzick model (a risk assessment model) the patient's lifetime risk is 4.9% and her 10 year risk is 2.1%. According to the ACR, ACS, and NCCN guidelines, an annual breast MRI exam along with mammogram is recommended if the patient's lifetime risk is 20% or greater. This exam was interpreted at Station ID: [id number]. NOTE: For mammograms, a report in lay terms will be sent to the patient. Approximately 15% of breast malignancies will not be visualized mammographically. In the management of a palpable breast mass, a negative mammogram must not discourage biopsy of a clinically suspicious lesion. Electronically Signed By: Alex Vargas M.D., jr/binh:10/11/2022 10:35:51 ACR BI-RADS Category 0: Incomplete 3340F
== END ==
PROVIDERS: Family Provider Internal Medicine; PCP Internal Medicine; Referring Provider Internal Medicine; Visit Provider Internal Medicine
DX: R92.8 Other abnormal and inconclusive findings on diagnostic imaging of breast (principal); N63.21 Unspecified lump in the left breast, upper outer quadrant
CPT/HCPCS: 76642; 77065; G0279

== ENCOUNTER → 2022-10-27 13:18 | Outpatient (CLI) | payer OTHER, SELFPAY ==
--- NOTE | 2022-10-27 | DI.US.S_ITS ---
ULTRASOUND GUIDED BIOPSY LEFT BREAST WITH POST MAMMOGRAPHIC AND ULTRASOUND IMAGIN10/27/2022 CLINICAL: Left breast mass. PATIENT CONSENT: Risks (minor bleeding, infection, vasovagal reaction and repeat procedure), benefits and alternatives were explained to the patient and written informed consent was obtained. Correlation is made to exams dated: 10/11/2022 ultrasound, 10/11/2022 mammogram, 08/29/2022 mammogram, 08/20/2021 mammogram, 07/16/2020 mammogram, and 07/15/2019 mammogram - [facility]. An ultrasound guided biopsy using real-time ultrasound was performed for the oval mass located in the left breast at 2 o'clock. This was described on the previous ultrasound report. The skin was prepped in the usual manner. Local anesthetic was administered to the access site. The abnormality was approached from the lateral aspect. A 16 gauge biopsy needle was placed adjacent to the abnormality under ultrasound guidance. Once the needle was documented to be in the correct location, five specimens were obtained using an Achieve automated firing device. Post procedure mammographic and ultrasound imaging demonstrates the clip at the targeted area. The specimens were sent to the laboratory for pathological analysis. IMPRESSION: ULTRASOUND GUIDED BIOPSY MALIGNANT Ultrasound guided biopsy of the mass in the left breast middle depth was successful. Waiting for pathology results. A final report will be issued when these become available. This exam was interpreted at Station ID: [id number]. CURRENT PENRAD IMPRESSIONS: Ultrasound guided biopsy of the mass in the left breast middle depth was successful. Pathology indicates malignant invasive ductal carcinoma (ID). Pathology results are concordant with imaging findings. A surgical/oncologic consultation is recommended. Results and recommendations will be communicated to the ordering provider's office. This exam was interpreted at Station ID: [id number]. Cami ramos,mathieu/:11/02/2022 10:36:56
--- NOTE | 2022-10-27 | DI.MG.S_ITS ---
UNILATERAL LEFT DIGITAL DIAGNOSTIC MAMMOGRAM 3D/2D POST-NEEDLE BIOPSY: 10/27/2022 CLINICAL: Right breast post-clip. Comparison is made to exams dated: 10/11/2022 mammogram, 08/29/2022 mammogram, 08/20/2021 mammogram, and 07/16/2020 mammogram - [facility]. There are scattered areas of fibroglandular density in the left breast (category b / 25%-50% glandular tissue). There is a biopsy clip at the biopsy site. IMPRESSION: POST PROCEDURE MAMMOGRAM FOR MARKER PLACEMENT A biopsy clip at the biopsy site. Based on the Tyrer Cuzick model (a risk assessment model) the patient's lifetime risk is 4.9% and her 10 year risk is 2.1%. According to the ACR, ACS, and NCCN guidelines, an annual breast MRI exam along with mammogram is recommended if the patient's lifetime risk is 20% or greater. This exam was interpreted at Station ID: [id number]. NOTE: For mammograms, a report in lay terms will be sent to the patient. Approximately 15% of breast malignancies will not be visualized mammographically. In the management of a palpable breast mass, a negative mammogram must not discourage biopsy of a clinically suspicious lesion. Electronically Signed By: Cami Daniels M.D. fx/:10/27/2022 15:24:10 ACR BI-RADS Category Post-procedure mammogram for marker placement
--- NOTE | 2022-10-27 | PATH_ITS ---
[facility] Accession Number: [id number] No. of containers..01 Tissue . 01 Material submitted: . breast - LEFT BREAST 2:00 10CMFN MASS . 01 Diagnosis: Left Breast, 2 o'clock, 10 cm FN, Mass; Image-Guided Biopsies: Invasive carcinoma, ductal-type, grade 3/3. Combined total [place] histologic score: 8 out of 9. - Tubular differentiation score: 2/3. - Nuclear pleomorphism score: 3/3. - Mitotic rate: 3/3. - Overall Grade 3 (score 8/9). Greatest linear dimension of invasive focus: 11 mm (1.1 cm). Ductal carcinoma in situ (DCIS): Not identified, see microscopic description. Necrosis not identified. Lymphovascular invasion not identified. Microcalcifications not identified. MRV 10/31/2022 1720 Local . 01 Electronically signed: . Tarun Ospina MD, Pathologist NPI- [id number] . 01 Gross description: . The specimen is received in formalin, labeled with the patient's name, , and bx breast, and consists of five yellow to saleh needle core biopsies ranging in length from 1.1 cm to 1.9 cm and averaging 0.1 cm in diameter. The specimen is submitted entirely in cassettes A1-A2. The specimen was removed on 10/27/22 at approximately 1514. Time in formalin not provided. Cold ischemic time cannot be calculated. Total fixation time is approximately 49 hours. ([id number]) /FRElio 10/28/2022 1657 Local . 01 Microscopic: . To evaluate for the presence of ductal carcinoma in situ and to more accurately estimate the length of the invasive tumor, p63 and myosin immunostains are performed (block A2). P63 shows absence of the basal cells of the invasive nests, and myosin, although it shows nonspecific background staining, is negative at the periphery of the invasive tumor. These results support invasive carcinoma and the absencve of ductal carcinoma in situ. . Predictive marker immunohistochemical studies are performed on block A2 with the invasive carcinoma showing the following results: . Estrogen receptor (SP1): Negative (0% of tumor cells), with appropriate positive internal control. Progesterone receptor (1E2): Negative (rare tumor cells weak positive, less than 1%), with appropriate internal positive control. Her2 (4B5): Negative (0). . . Cold ischemic time is <5 minutes. The scoring criteria for breast biomarkers by immunohistochemistry is based on the ASCO/CAP guidelines (Addison AC et al, J Clin Oncol: 2018 Apr 23;36(20):7308-7012 and Evan MERCHANT et al, Arch Pathol Lab Med: 2009;134(6):907-22). Deparaffinized sections of formalin fixed tissue (along with appropriate positive controls) are incubated with the above antibody(s). Using the automated [place] stainer, tissue is incubated with the designated antibody which is then localized by a non-biotin, dual polymer detection system. The external controls are reviewed for appropriate reactivity and found to be adequate. Results on the target cell population are indicated above. These tests have not been validated on decalcified tissue. This test was developed and its performance characteristics determined by [employer]. It has not been cleared or approved by the U.S. Food and Drug Administration. The FDA has determined that such clearance or approval is not necessary. This test is used for clinical purposes. It should not be regarded as investigational or for research. . 01 Pathologist provided ICD-10: R92.8, C50.812 . 01 CPT . 264828, V97038, M63564, 002578, 066991, 683993 Specimen Comment: A courtesy copy of this report has been sent to [phone] Performed at: 01 [facility] [address] [place] [address], [place], [place] [id number] MD Masood Ruiz MD Phone: [phone]
== END ==
PROVIDERS: Family Provider Internal Medicine; PCP Internal Medicine; Referring Provider Internal Medicine; Visit Provider Internal Medicine
DX: C50.412 Malignant neoplasm of upper-outer quadrant of left female breast (principal); Z17.1 Estrogen receptor negative status [ER-]
CPT/HCPCS: 19083; 77065

== ENCOUNTER → 2022-12-19 07:46 | Outpatient (CLI) | payer OTHER, SELFPAY ==
--- NOTE | 2022-12-19 07:48 | DI.NM.S_ITS ---
PROCEDURE: NM SENTINEL NODE INJECT ONLY RADIOPHARMACEUTICAL: 0.5-1.0 mCi Millipore filtered Tc-99m sulfur colloid. INDICATIONS: lumpectomy left breast COMPARISON: [facility], CT, CT CHEST ABDOMEN PELVIS WITH CONTRAST, 11/30/2022, 14:13. PROCEDURE: The area around the nipple was prepped and draped in a sterile fashion. Tc-99m sulfur colloid was injected intra-dermally around the outer edge of the areola in the left breast. No image was obtained. IMPRESSION: Administration of radiotracer into the left breast periareolar region for intra-operative sentinel lymph node localization. Dictated by: Cami Daniels M.D. on 12/19/2022 at 11:46 Approved by: Cami Daniels M.D. on 12/19/2022 at 11:46
== END ==
PROVIDERS: Family Provider Internal Medicine; PCP Internal Medicine; Referring Provider Surgery; Visit Provider Surgery
DX: C50.912 Malignant neoplasm of unspecified site of left female breast (principal)
CPT/HCPCS: 38792; A9541

== ENCOUNTER 2022-12-19 07:48 | Day surgery (SDC) | payer OTHER, SELFPAY ==
[2022-12-15 08:11] VITALS: BMI 27.3
[2022-12-19] VITALS (12 sets, daily range): BP systolic 124–153; BP diastolic 79–95; PULSE 77–110; RESP 12–18; TEMP 36.2–36.8; O2SAT 92–98; BMI 27.3
--- NOTE | 2022-12-19 | PATH_ITS ---
[facility] Accession Number: [id number] No. of containers..02 Tissue . 01 Material submitted: . PART A: breast - LEFT BREAST PART B: lymph node - LEFT AXILLARY SENTINEL LYMPH NODE . 01 Diagnosis: A. Left Breast, Excision: Invasive (ductal) carcinoma, grade 3 of 3 ([place] combined histologic grade, total score 8/9) with the following features: 1. Tumor size (invasive component): 2.2 cm (by gross measurement). 2. Nuclear pleomorphism: High. (3/3) 3. Mitotic rate: High (3/3) 4. Tubular differentiation: Moderate degree. (2/3) 5. Ductal carcinoma in situ: Absent; focal atypical ductal hyperplasia is seen. 6. Calcification: Absent. 7. Lymphatic invasion: Not identified in this specimen. 8. Resection margins: Negative, with the following details: - Invasive carcinoma: More than 0.2 cm from all margins. 9. Prognostic markers, repeated on block A4 of the excision specimen: - Estrogen receptor status: Negative. - Progesterone receptor status: Negative. - HER2 status: Negative for protein overexpression by immunohistochemistry (0). - Ki67: 60-70% of tumor cells staining. 10. Regional lymph node status (see part B): - Four sentinel lymph nodes, negative for malignancy (0/4). - No additional lymph nodes identified within the excision specimen. 11. Additional findings: - Skin, nipple, or skeletal muscle are not present for evaluation. - Background fibrocystic change including columnar cell change/columnar cell hyperplasia, fibroadenomatous change, microcysts, usual ductal hyperplasia, and sclerosing adenosis. - Biopsy site changes/clip are present. 12. Pathologic stage: pT2 pN0(sn) . B. Left Axillary [place] Lymph Nodes, Dissection: Four lymph nodes, negative for malignancy (0/4). [facility] 12/26/2022 1834 Local . 01 Electronically signed: . Kelsie Ribeiro MD, Pathologist NPI- [id number] . 01 Gross description: . A. Received: In formalin labeled with the patient's name, , and left breast lumpectomy, suture long lateral, short superior. Specimen: A left lumpectomy previously inked and oriented with sutures. Weight: 89 grams. Measurement: 5.7 cm anterior to posterior, 3.9 cm medial to lateral, and 9.2 cm superior to inferior. Skin Ellipse: Absent. Wire: Absent. Margins: Inked by surgeon as follows: Anterior green, inferior blue, lateral orange, medial yellow, posterior black, superior red, and oriented with two sutures, a long suture designating lateral found within the orange ink, and a short suture designating superior found within the red ink. Inking reinforced at bench. Sliced: From superior to inferior into fourteen 3 mm slices. Description: A fairly ill-defined pink-saleh firm mass with pinpoint hemorrhage. Size: 2.2 x 2.1 x 1.5 cm. Slices Involved: 6-10. Biopsy Site: Present with a Vision biopsy clip within slice 9. Distance to Margins: 0.3 cm to the orange lateral margin, 0.5 cm from the yellow medial margin, and greater than 1.0 cm from all remaining margins. . Other: The remaining cut surfaces are yellow to white fibroadipose tissue with dense white fibrous tissue occupying approximately 20% of the cut surface. No additional lesions or biopsy sites are identified. Fixation time: The specimen was removed on 12/19/2022. Time not provided. Cold ischemic time cannot be calculated. Total fixation time is approximately 36 hours. A1: Rep slice 1, superior margin perpendicular. A2: Rep slice 3 to include lateral, medial, and posterior margins, no lesion. A3: Rep slice 5, no lesion, to include lateral and anterior margins. A4: Rep slice 6 with lesion and lateral margin. A5-A6: Rep slice 7 to include lesion, lateral, posterior, and medial margins with closest medial and lateral margins. A7-A10: Entire composite slice 9 to include medial, lateral, anterior, and posterior margins with biopsy site in A8. A11: Rep slice 11 to include medial and lateral margins with no lesion. A12: Rep slice 12, no lesion, fibrous tissue, and lateral and anterior margins. A13: Rep slice 14, inferior margin perpendicular. . B. Received in formalin labeled with the patient's name, and left axillary sentinel lymph nodes consists of four saleh lymph node candidates ranging from 0.4 to 1.8 cm in greatest dimension. The largest lymph node candidate is serially sectioned to reveal a saleh soft cut surface. The second largest lymph node candidate is bisected to reveal a saleh soft cut surface. The specimen is submitted entirely as follows: B1: Largest single serially sectioned lymph node candidate. B2: Second largest single bisected lymph node candidate. B3: Single intact lymph node candidate. B4: Single intact lymph node candidate. The specimen was removed on 12/19/2022. Time in formal not provided. Cold ischemic time cannot be calculated. Total fixation time is approximately 36 hours. ([id number]) /MRV 12/20/2022 1614 Local . 01 Microscopic: . Given the negative prognostic marker results on the prior biopsy, repeat of the prognostic markers is performed on block A4, with appropriately staining external controls, and the invasive ductal carcinoma has the following immunoprofile: . Estrogen receptor (SP1): Negative (0% tumor cells staining; positive internal control is present). Progesterone receptor (1E2): Negative (0% tumor cells staining; positive internal control is present). Her2 (4B5): Negative for protein overexpression by immunohistochemistry (0). Ki67 proliferative index: 60-70% of tumor cells staining. . Internal controls for ER and IL are positive. Cold ischemic time is <5 minutes. The scoring criteria for breast biomarkers by immunohistochemistry is based on the ASCO/CAP guidelines (Addison AC et al, J Clin Oncol: 2018 Apr 23;36(20):6945-4560 and Evan ME et al, Arch Pathol Lab Med: 2009;134(6):907-22). Deparaffinized sections of formalin fixed tissue (along with appropriate positive controls) are incubated with the above antibody(s). Using the automated [place] stainer, tissue is incubated with the designated antibody which is then localized by a non-biotin, dual polymer detection system. The external controls are reviewed for appropriate reactivity and found to be adequate. Results on the target cell population are indicated above. These tests have not been validated on decalcified tissue. This test was developed and its performance characteristics determined by [employer]. It has not been cleared or approved by the U.S. Food and Drug Administration. The FDA has determined that such clearance or approval is not necessary. This test is used for clinical purposes. It should not be regarded as investigational or for research. . 01 Pathologist provided ICD-10: C50.912 . 01 CPT . 797672, 399795, L37791, 513242, 039444, 512092 Specimen Comment: A courtesy copy of this report has been sent to [phone] Performed at: 01 [facility] [address] [facility], [place], [place] [id number] MD Masood Ruiz MD Phone: [phone]
--- NOTE | 2022-12-19 | DI.MG.S_ITS ---
SPECIMEN LEFT BREAST: 12/19/2022 CLINICAL: Left breast specimen. Correlation is made to exams dated: 11/29/2022 ultrasound - [facility], 10/27/2022 mammogram, 10/11/2022 mammogram, and 08/29/2022 mammogram - [facility]. A surgical specimen was imaged for the spiculated irregular shaped solid mass located in the left breast at 2 o'clock middle depth. This was described on the previous mammography and ultrasound reports. IMPRESSION: SPECIMEN The imaged specimen includes the mass and a biopsy clip. Future imaging is recommended as follows: 02/26/2023 follow-up left ultrasound. This exam was interpreted at Station ID: [id number]. Alex Vargas M.D., jr/binh:12/19/2022 14:20:23
--- NOTE | 2022-12-19 | DI.RAD.S_ITS ---
PROCEDURE: XR CHEST 1V INDICATIONS: PORT A CATH PLACEMENT TECHNIQUE: 4 operative C-arm images of the chest was acquired. COMPARISON: [facility], CR, XR CHEST 1V, 12/19/2022, 14:32. FINDINGS: 4 C-arm operative images demonstrate placement of a right chest Port-A-Cath. The tip of the Port-A-Cath is not included on the final film. IMPRESSION: Operative imaging utilized during placement of a right chest Port-A-Cath. Dictated by: Jeb Williamson M.D. on 12/19/2022 at 18:26 Approved by: Jeb Williamson M.D. on 12/19/2022 at 18:29
--- NOTE | 2022-12-19 08:55 | SUR.PREOP ---
Addendum entered by Lana Butcher R.N. 12/19/22 09:13: 0913: Pt has returned from Nuc [facility]. Addendum entered by Lana Butcher R.N. 12/19/22 08:56: Pre op assessment complete as no orders available. Original Note: 0855: Pt off unit to NUC MED.
[2022-12-19] MEDS: LACTATED RINGERS 1,000 ML 42 ML IV ×2 (09:29→12:57)
--- NOTE | 2022-12-19 10:30 | P.OP_ITS ---
Operative Date/Time/Diagnoses Date of procedure: 12/19/22 Time of procedure: 10:30 Pre-op diagnosis: Left breast cancer Post-op diagnosis: same Procedure & Clinicians Procedure: 1. Left breast lumpectomy with oncoplastic reconstruction 2. Left sentinel lymph node biopsy 3. Right internal jugular vein Port-A-Cath Same procedure as scheduled: Yes Surgeon: Andrea Garcia Anesthesia Type: General Operative Notes Procedure in detail: The patient was given preoperative antibiotic. The patient was brought to the operating room, placed on the table in the supine position, general anesthesia was induced. The left arm was abducted on an arm board. 5 mL of 50% methylene blue were injected near the left area lower border. The left breast and axilla were prepped and draped in the usual fashion. A time-out was performed. Additional massage was performed to spread the methylene blue. We made a 10 cm radial incision over the palpable mass in the upper outer quadrant of the left breast towards the axilla. We created flaps superior and inferior to the incision and then dissected down to the lateral chest wall keeping the palpable mass within the center portion of specimen. We reached serratus anterior musculature at the deepest aspect of the dissection. A silk suture was placed at the lateral aspect of the mass and left long. A short superior stitch was placed. The specimen was sent to Radiology for specimen mammogram which did show the mass within the specimen. We then perform the sentinel lymph node biopsy through the superior aspect of the incision. Using the probe we located a blue hot node low in the axilla. A few many clips were used to control vessels and lymphatics. This was removed and measured ex vivo with a 10 second count and was noted to be 600. The background however was 300 so we continued to search for more nodes. A second node was removed and but again the background count remained above 10% of the ex vivo count of the combined nodes. Eventually we removed 3 hot nodes and had a ex vivo signal of 1729 compared to a background signal of 184. We then irrigated the entire left breast cavity. A few mini clips were used to control some small bleeders and a few additional clips were used to delineate the cavity. We then created subcutaneous tissue flaps by lifting the breast tissue off the pectoralis fascia and we the breast tissue from the subcutaneous adipose tissue. We then closed the deep layer with multiple interrupted 3-0 Vicryl sutures. We then closed skin with multiple interrupted 3-0 Vicryl dermal sutures and a running 4-0 Monocryl subcuticular closure. Steri-Strips were applied. We then moved on to the Port-A-Cath. An ultrasound was used to identify the right internal jugular vein. The vein was noted to be patent. An image was saved and printed and placed in the chart. The right internal jugular vein was accessed via the Seldinger technique under ultrasound guidance. The guidewire was inserted into the superior vena cava. C-arm was used to confirm proper position of the guidewire in the superior vena cava and no ectopy was noted. The needle was removed and the wire was clamped to the drape. Next, a port pocket was created just inferior to the medial clavicle using a 15 blade scalpel. Dissection was carried down to the pectoral fascia. A subcutaneous pocket was created using a combination of cautery and blunt dissection. Next, the port which was primed with injectable saline, was secured to the fascia with 3-0 PDS sutures left untied and clamped. The neck incision was extended with an 11 blade scalpel to approximately 5 mm. The dilator and peel-away sheath were inserted over the wire without resistance. The catheter was passed from the neck incision to the chest incision in the subcutaneous tissue using the tunnelling device. The wire and dilator were then removed and the catheter inserted through the peel-away sheath to deliver it into the superior vena cava. The depth of the device was checked using the C-arm and the tip of the device was noted to be in the distal superior vena cava. The exterior portion of the catheter was then trimmed and attached to the port using the strain relief collar. A final image showed good position of the catheter with no kinks. The port was then tucked into the subcutaneous pocket and the sutures were tied to secure the device. The port was then accessed using the Ya needle and it was noted that the device milton and flushed easily without resistance. Approximately 4 mL of heparinized saline were injected into the device. The skin incisions were closed with 3-0 Vicryl and 4-0 Monocryl. Steri -Strips were applied patient was awakened and brought to recovery room Ultrasound: The right internal jugular vein was patent. The right carotid artery was visualized adjacent to the vein. Venipuncture was visualized in real-time using the ultrasound. Fluoroscopy: The device was positioned appropriately with the distal end of the catheter near the atriocaval junction. There were no kinks in the catheter. Specimens: Left breast mass and left axillary nodes EBL: 30 mL Post-operative Condition: stable Disposition: PACU
--- NOTE | 2022-12-19 10:30 | PM.PREOP ---
Pre-operative Note COVID-19 COVID-19 status: Not tested Interval Note History & Physical reviewed/Exam performed by Physician: Yes Changes to H&P: No ASA Class (for procedural sedation): II
[2022-12-19] MEDS: METHYLENE BLUE 50 MG/10 ML VIAL 25 MG INJ (11:28)
[2022-12-19] MEDS: CEFAZOLIN 2 GM/100 ML PREMIX 100 ML IV (11:30)
--- NOTE | 2022-12-19 11:46 | SUR.OPER ---
Supine on padded OR bed, head on pillow, left arm secured on padded arm boards at <90 degrees abduction, right arm padded and tucked, legs uncrossed, safety belt at thigh, tape over blanket over lower legs. Pt positioned per direction and supervision of Dr Garcia.
[2022-12-19] MEDS: LIDOCAINE 1% W/EPI 20 ML INJ (11:58)
[2022-12-19] MEDS: BUPIVACAINE 0.25% W/ EPI 30 ML VIAL INJ (12:01)
--- NOTE | 2022-12-19 14:30 | DI.RAD.S_ITS ---
PROCEDURE: XR CHEST 1V INDICATIONS: PORT A CATH TECHNIQUE: One view of the chest was acquired. COMPARISON: None. FINDINGS: Surgical changes and devices: Right-sided Port-A-Cath tip in the mid SVC. No pneumothorax Lungs and pleura: Lungs are clear. No pleural effusions or pneumothorax. Mediastinum: Mediastinal contours appear normal. Heart size is normal. Bones and chest wall: No suspicious bony lesions. Overlying soft tissues appear unremarkable. IMPRESSION: Sided Port-A-Cath good position. No pneumothorax Approved by: Luis Fenton M.D. on 12/19/2022 at 17:59
[2022-12-19] MEDS: ONDANSETRON 4 MG/2 ML INJ IV ×2 (14:46→16:24)
[2022-12-19] MEDS: OXYCODONE/ACETAMINOPHEN 5/325 TABLET 1 TAB PO (14:46)
[2022-12-19] MEDS: fentaNYL 100 MCG/2 ML INJ IV ×2 (14:46→14:56)
--- NOTE | 2022-12-19 16:11 | SUR.PHASEII ---
Dr Holt informed of patient complaint of sore throat. See new order.
[2022-12-19] MEDS: BENZOCAINE/MENTHOL 1 LOZ PKT 1 EACH PO (16:21)
== END 2022-12-19 17:05 | disposition home or self-care (01) ==
PROVIDERS: Family Provider Internal Medicine; PCP Internal Medicine; Referring Provider Surgery; Visit Provider Surgery
PROC: (CPT 19301; principal; 2022-12-19 10:45)
PROC: (CPT 19303; 2022-12-19 10:45)
DX: C50.912 Malignant neoplasm of unspecified site of left female breast (principal); Z17.1 Estrogen receptor negative status [ER-]; E11.9 Type 2 diabetes mellitus without complications; Z79.84 Long term (current) use of oral hypoglycemic drugs
CPT/HCPCS: 19303; 36561; 38792; 71045; 76000; 76098; A9541; C1788; J0690; J1100; J1644; J2405; J2704; J3010; Q9968

== ENCOUNTER → 2023-08-13 10:16 | Outpatient (CLI) | payer OTHER, MEDICAID, SELFPAY ==
--- NOTE | 2023-08-13 10:18 | DI.US.S_ITS ---
LIMITED ULTRASOUND OF LEFT BREAST: 08/13/2023 CLINICAL: Palpable left breast lump. Comparison is made to exams dated: 12/19/2022 specimen - [facility], 11/29/2022 ultrasound - [facility], 10/27/2022 ultrasound biopsy, 10/27/2022 mammogram, 10/11/2022 ultrasound, and 10/11/2022 mammogram - [facility]. Color flow and real-time ultrasound of the left breast 2 o'clock region were performed. Webster scale images of the real-time examination were reviewed. There is a new 0.4 cm x 0.4 cm x 0.2 cm oval cyst in the left breast at 2 o'clock posterior depth 10 cm from the nipple. This oval cyst is hypoechoic. Color flow imaging demonstrates that there is no vascularity present. There also is a benign 1.6 cm x 1.3 cm x 0.6 cm oval fluid collection in the left breast at 2 o'clock posterior depth 10 cm from the nipple. This oval fluid collection is hypoechoic with internal echoes. Color flow imaging demonstrates that there is no vascularity present. This corresponds to the palpable abnormality. IMPRESSION: PROBABLY BENIGN The new 0.4 cm oval cyst or seroma in the left breast at 2 o'clock posterior depth is indeterminate. -A follow-up ultrasound is recommended in 6 months. The 1.6 cm oval fluid collection in the left breast at 2 o'clock posterior depth is consistent with the lumpectomy cavity/seroma and is benign. -Clinical surveillance is recommended. -A diagnostic mammogram is recommended to establish a new baseline of the left breast when clinically feasible. Patient will be due for right mammogram at that time. This exam was interpreted at Station ID: [id number]. Electronically Signed By: David Callaway M.D. [facility] [place]/:08/13/2023 11:24:53 letter sent: Followup Recommended Ultrasound BI-RADS: 3 Probably benign
== END ==
PROVIDERS: Family Provider Internal Medicine; PCP Internal Medicine; Referring Provider Surgery; Visit Provider Surgery
DX: C50.912 Malignant neoplasm of unspecified site of left female breast (principal)
CPT/HCPCS: 76642

== ENCOUNTER → 2023-09-10 10:49 | Outpatient (CLI) | payer OTHER, MEDICAID, SELFPAY ==
--- NOTE | 2023-09-10 | DI.RAD.S_ITS ---
Bone Density Report Name: MILADIS VALVERDE Age: 63 Sex: Female Ethnicity: Date of : 1960 Indication: postmenopausal; screening for osteoporosis; Referring Provider: PAVEL JOHNSON Study: Bone densitometry was performed. Exam Date: September 10, 2023 Accession number: [id number] Bone Density: Region BMD T-score Z-score Classification AP Spine(L1-L4) 1.046 0.0 1.7 Normal Femoral Neck (Left) 0.654 -1.8 -0.3 Osteopenia Total Hip (Left) 0.786 -1.3 -0.1 Osteopenia Femoral Neck (Right) 0.814 -0.3 1.2 Normal Total Hip (Right) 0.853 -0.7 0.5 Normal Total Hip Mean 0.819 -1.0 0.2 Normal World Health Organization criteria for BMD impression classify patients as: Normal (T-score at or above -1.0), Osteopenia (T-score between -1.0 and -2.5), or Osteoporosis (T-score at or below -2.5). 10-year Fracture Risk(1): Major Osteoporotic Fracture 5.2% Hip Fracture 0.6% Reported Risk Factors: [place] (), Neck BMD=0.654, BMI=26.6 (1) FRAX(R) Version 3.08. Fracture probability calculated for an untreated patient. Fracture probability may be lower if the patient has received treatment. Previous Exams: -- Region Exam Age BMD T-score BMD Change BMD Change Date g/cm2 vs Baseline vs Previous -- AP Spine (L1-L4) 09/10/2023 63 1.046 0.0 -0.042 (-3.9%)# -0.042 (-3.9%)# 01/13/2011 50 1.089 0.4 Total Hip(Left) 09/10/2023 63 0.786 -1.3 -0.085 (-9.8%)# -0.085 (-9.8%)# 01/13/2011 50 0.871 -0.6 Total Hip(Right) 09/10/2023 63 0.853 -0.7 0.013 (1.6%)# 0.013 (1.6%)# 01/13/2011 50 0.840 -0.8 -- *Denotes significance at 95% confidence level, LSC for AP Spine = 0.022 g/cm2, LSC for Total Hip = 0.027 g/cm2 # Denotes dissimilar scan types or analysis methods Impression: The patient has low bone mass, based on the Left Femoral Neck T-score. The patient has an estimated ten-year risk of hip fracture of 0.6% and an estimated ten-year risk of major fracture of 5.2%, based on the WHO FRAX algorithm. No significant bone loss was observed. Discussion: BONE DENSITY IS LOW AT ONE OR MORE SKELETAL SITES. This patient's lowest T-score is low at one or more skeletal sites. It meets the World Health Organization's (WHO) criteria for low bone mass (T-score between -1.0 and -2.5). The patient's 10-year risk of fracture as calculated by FRAX is less than the threshold where pharmacological therapy is recommended by the National Osteoporosis Foundation (NOF). However, all treatment decisions require clinical judgment and consideration of individual patient factors, including patient preferences, comorbidities, previous drug use, risk factors not captured in the FRAX model (e.g., frailty, falls, vitamin D deficiency, increased bone turnover, interval significant decline in bone density) and possible under or overestimation of fracture risk by FRAX. The patient should follow a healthful lifestyle (good nutrition with adequate calcium and vitamin D, and appropriate weight-bearing exercise). Follow-Up: Consider repeating this study in 2 to 3 years to reassess this patient's status, or sooner if there is some new clinical indication. Reported by: NENA CASTILLO MD on 09/10/2023 11:13:00 AM.
== END ==
PROVIDERS: Family Provider Internal Medicine; PCP Internal Medicine; Referring Provider Internal Medicine; Visit Provider Internal Medicine
DX: Z78.0 Asymptomatic menopausal state (principal); M85.88 Other specified disorders of bone density and structure, other site
CPT/HCPCS: 77080

== ENCOUNTER → 2023-11-27 13:24 | Outpatient (CLI) | payer OTHER, MEDICAID, SELFPAY ==
--- NOTE | 2023-11-27 | DI.MG.S_ITS ---
BILATERAL DIGITAL DIAGNOSTIC MAMMOGRAM 3D/2D: 11/27/2023 CLINICAL: Personal history of left breast cancer. Comparison is made to exams dated: 10/27/2022 mammogram, 10/11/2022 mammogram, 08/29/2022 mammogram, and 08/20/2021 mammogram - [facility]. There are scattered areas of fibroglandular density in both breasts (category b / 25%-50% glandular tissue). There are benign post operative findings in the left breast. No significant masses, calcifications, or other findings are seen in either breast. There has been no significant interval change. IMPRESSION: PROBABLY BENIGN Return to screening mammogram schedule. A follow-up left ultrasound in January is recommended to demonstrate stability of the previously seen cyst or seroma in the left breast at 2 o'clock. Future imaging is recommended as follows: 02/12/2024 follow-up left ultrasound. This exam was interpreted at Station ID: Unknown. NOTE: For mammograms, a report in lay terms will be sent to the patient. Approximately 15% of breast malignancies will not be visualized mammographically. In the management of a palpable breast mass, a negative mammogram must not discourage biopsy of a clinically suspicious lesion. Electronically Signed By: Priti Vitale M.D. lk/:11/29/2023 11:54:04 copy to: Bette Tomas letter sent: Followup Recommended ACR BI-RADS Category 3: Probably benign [id number]
== END ==
LOC: MAMMO 13:25
PROVIDERS: Family Provider Internal Medicine; PCP Internal Medicine; Referring Provider Internal Medicine Hematology & Oncology; Visit Provider Internal Medicine Hematology & Oncology
DX: R92.323 Mammographic fibroglandular density, bilateral breasts; E78.2 Mixed hyperlipidemia; C50.412 Malignant neoplasm of upper-outer quadrant of left female breast; I10 Essential (primary) hypertension; M85.80 Other specified disorders of bone density and structure, unspecified site; Z17.1 Estrogen receptor negative status [ER-]
CPT/HCPCS: 77066; G0279

== ENCOUNTER → 2024-01-02 12:10 | Outpatient (CLI) | payer OTHER, MEDICAID, SELFPAY ==
--- NOTE | 2024-01-02 | DI.US.S_ITS ---
LIMITED ULTRASOUND OF LEFT BREAST AND AXILLA: 01/02/2024 CLINICAL: Patient returns today to evaluate a focal asymmetry in the left breast. Comparison is made to exams dated: 11/27/2023 mammogram, 08/13/2023 ultrasound - [facility], 11/29/2022 ultrasound - [facility], 10/27/2022 ultrasound biopsy, 10/27/2022 mammogram, and 10/11/2022 ultrasound [facility]. Color flow and real-time ultrasound of the left breast 2 o'clock, and axilla regions were performed. Webster scale images of the real-time examination were reviewed. There is a 0.3 cm x 0.2 cm x 0.2 cm oval complicated cyst in the left breast at 2 o'clock posterior depth 10 cm from the nipple. This oval complicated cyst is hypoechoic. This abnormality is not significantly changed. Color flow imaging demonstrates that there is no vascularity present. No significant abnormalities were seen sonographically in the left axilla. IMPRESSION: PROBABLY BENIGN The 0.3 cm complicated cyst in the left breast is probably benign. A follow-up ultrasound in 6 months is recommended to demonstrate stability. No enlarged left axillary lymph nodes. Exam findings were conveyed to the patient. Patient is advised to monitor for significant change. This exam was interpreted at Station ID: [id number]. Electronically Signed By: David Callaway M.D. [facility] [place]:01/02/2024 13:37:19 letter sent: Followup Recommended Ultrasound BI-RADS: 3 Probably benign
== END ==
LOC: US 12:10
PROVIDERS: Family Provider Internal Medicine; PCP Internal Medicine; Referring Provider Internal Medicine; Visit Provider Internal Medicine
DX: R92.8 Other abnormal and inconclusive findings on diagnostic imaging of breast (principal); N60.02 Solitary cyst of left breast; C50.912 Malignant neoplasm of unspecified site of left female breast; E78.2 Mixed hyperlipidemia; I10 Essential (primary) hypertension; M85.80 Other specified disorders of bone density and structure, unspecified site; Z17.1 Estrogen receptor negative status [ER-]
CPT/HCPCS: 76642

== ENCOUNTER → 2024-06-17 09:43 | Outpatient (CLI) | payer MEDICARE, SELFPAY ==
--- NOTE | 2024-06-17 09:45 | DI.US.S_ITS ---
LIMITED ULTRASOUND OF LEFT BREAST AND AXILLA: 06/17/2024 CLINICAL: Patient returns for a 6 month follow up of the left breast. Comparison is made to exams dated: 01/02/2024 ultrasound, 11/27/2023 mammogram, 08/13/2023 ultrasound, 12/19/2022 specimen - [facility], 11/29/2022 ultrasound - [facility], and 10/27/2022 ultrasound biopsy - [facility]. Color flow and real-time ultrasound of the left breast 2 o'clock, and axilla regions were performed. Webster scale images of the real-time examination were reviewed. The benign complicated cyst in the left breast at 2 o'clock posterior depth is no longer seen. Left breast seroma is again noted and grossly similar. Measures 1.6 x 1.3 x 0.6 cm. No internal vascularity. IMPRESSION: BENIGN There is no sonographic evidence of malignancy. Small left breast complicated cyst is resolved. Benign left breast seroma is not significantly changed. Exam findings were conveyed to the patient. Return to annual mammogram screening schedule is recommended. This exam was interpreted at Station ID: [id number]. Electronically Signed By: David Callaway M.D. [facility]/:06/17/2024 11:06:00 copy to: Bette Tomas letter sent: Normal Exam Ultrasound BI-RADS: 2 Benign
== END ==
PROVIDERS: Family Provider Internal Medicine; PCP Internal Medicine; Referring Provider Internal Medicine Hematology & Oncology; Visit Provider Internal Medicine Hematology & Oncology
DX: C50.919 Malignant neoplasm of unspecified site of unspecified female breast (principal); N64.89 Other specified disorders of breast; E11.9 Type 2 diabetes mellitus without complications; M85.80 Other specified disorders of bone density and structure, unspecified site; I10 Essential (primary) hypertension; E78.2 Mixed hyperlipidemia; Z17.1 Estrogen receptor negative status [ER-]
CPT/HCPCS: 76642

== ENCOUNTER → 2024-11-28 07:47 | Outpatient (CLI) | payer MEDICARE, SELFPAY ==
--- NOTE | 2024-11-28 07:48 | DI.MG.S_ITS ---
BILATERAL DIGITAL SCREENING MAMMOGRAM 3D/2D WITH CAD: 11/28/2024 CLINICAL: Routine screening. Personal history of left breast cancer. Comparison is made to exams dated: 11/27/2023 mammogram, 08/29/2022 mammogram, and 08/20/2021 mammogram - [facility]. There are scattered areas of fibroglandular density (category b / 25%-50% glandular tissue). Current study was also evaluated with a Computer Aided Detection (CAD) system. There are benign post operative findings in the left breast. No significant masses, calcifications, or other findings are seen in either breast. There has been no significant interval change. IMPRESSION: BENIGN There is no mammographic evidence of malignancy. A 1 year screening mammogram is recommended. This exam was interpreted at Station ID: [id number]. NOTE: For mammograms, a report in lay terms will be sent to the patient. Approximately 15% of breast malignancies will not be visualized mammographically. In the management of a palpable breast mass, a negative mammogram must not discourage biopsy of a clinically suspicious lesion. Electronically Signed By: Alfonzo perez/binh:11/29/2024 14:41:23 letter sent: Normal Exam ACR BI-RADS Category 2: Benign
== END ==
LOC: MAMMO 07:47
PROVIDERS: Family Provider Internal Medicine; PCP Internal Medicine; Referring Provider Internal Medicine; Visit Provider Internal Medicine
DX: Z12.31 Encounter for screening mammogram for malignant neoplasm of breast (principal); Z85.3 Personal history of malignant neoplasm of breast
CPT/HCPCS: 77063; 77067